=== PATIENT | male | born 1950 | race Caucasian/White ===

== ENCOUNTER 2017-10-14 12:44 | Outpatient (CLI) | payer MEDICARE, OTHER ==
--- NOTE | 2017-10-14 15:37 | XRAY Report ---
Reason: SPRAIN OF LIGAMENTS OF CER Procedure Date: 10/14/2017 Accession Number: [id number] / [id number] Procedure: XR - Cervical Spine Complete CPT Code: FULL RESULT: EXAM: CERVICAL SPINE RADIOGRAPHY EXAM DATE: 10/14/2017 01:24 PM. CLINICAL HISTORY: SPRAIN OF LIGAMENTS OF CERVICAL SPINE, NECK PAIN COMPARISONS: None. TECHNIQUE: 5 views. FINDINGS: Alignment: No spondylolisthesis or scoliosis. Bones: The cervical vertebral bodies and posterior elements are well-seen from the skull base through C7-T1. No fractures or bone lesions. Disks: Moderately advanced C5-C6 disk space narrowing. Remaining disk spaces well-maintained. Facets: Scattered degenerative disease. Neural Foramina: The neural foramina are not well seen. Soft Tissues: No prevertebral soft tissue swelling. IMPRESSION: Degenerative change cervical spine most marked C5-C6 without superimposed acute findings. RADIA
== END 2017-10-14 12:45 | disposition home or self-care (01) ==
LOC: DI 12:44
PROVIDERS: ATTEND Physical Medicine & Rehabilitation
DX: M50.322 Other cervical disc degeneration at C5-C6 level (principal); M47.892 Other spondylosis, cervical region
CPT/HCPCS: 72050

== ENCOUNTER 2020-06-25 09:03 | Outpatient (CLI) | payer MEDICARE, OTHER ==
[2020-06-25 09:27] LABS: BILIRUBIN,URINE NEGATIVE (NEGATIVE); GLUCOSE, URINE (UA) NEGATIVE (NEGATIVE); KETONES,URINE (UA) NEGATIVE (NEGATIVE); LEUKOCYTE ESTERASE, URINE LARGE (NEGATIVE); NITRITE,URINE NEGATIVE (NEGATIVE); OCCULT BLOOD,URINE MODERATE (NEGATIVE); PROTEIN,URINE 30 mg/dL (NEGATIVE); UROBILINOGEN,URINE 0.2 (NORMAL) E.U./dL (NORMAL)
[2020-06-25 09:33] LABS: BACTERIA,URINE Few /HPF (None Seen); CLARITY,URINE CLOUDY (CLEAR); SQUAMOUS EPITHELIAL CELL,UR FEW Squamous (<= Few); WBC,URINE >25 /HPF (0-3)
== END 2020-06-25 09:04 | disposition home or self-care (01) ==
LOC: LAB 09:03
PROVIDERS: ATTEND Student in an Organized Health Care Education/Training Program
DX: N39.0 Urinary tract infection, site not specified (principal)
CPT/HCPCS: 81001; 81003; 81599

== ENCOUNTER 2020-08-02 12:57 | Emergency (ER) | payer MEDICARE, OTHER ==
[2020-08-02 13:08] VITALS: BP 176/87
[2020-08-02 13:35] LABS: BASOPHILS # (AUTO) 0.1 10^3/uL (0.0-0.1); BASOPHILS % (AUTO) 1.2 %; EOSINOPHILS # (AUTO) 0.4 10^3/uL (0.0-0.7); EOSINOPHILS % (AUTO) 5.5 %; HCT - HEMATOCRIT 39.3 % (42.0-52.0); HGB - HEMOGLOBIN 12.5 g/dL (14.0-18.0); LYMPHOCYTES # (AUTO) 1.5 10^3/uL (1.5-3.5); LYMPHOCYTES % (AUTO) 22.2 %; MEAN CORPUSCULAR HEMOGLOBIN 30.9 pg (27.0-31.0); MEAN CORPUSCULAR HGB CONC 31.8 g/dL (32.0-36.0); MEAN PLATELET VOLUME 11.2 fL (7.4-11.4); MONOCYTES # (AUTO) 0.8 10^3/uL (0.0-1.0); MONOCYTES % (AUTO) 12.1 %; NEUTROPHILS % (AUTO) 58.6 %; PLT - PLATELET COUNT 160 10^3/uL (130-450); RED BLOOD COUNT 4.05 10^6/uL (4.70-6.10); RED CELL DISTRIBUTION WIDTH 12.8 % (12.0-15.0); WHITE BLOOD COUNT 6.8 x10^3/uL (4.8-10.8)
[2020-08-02 13:49] LABS: ALBUMIN 4.2 g/dL (3.2-5.5); ALBUMIN/GLOBULIN RATIO 1.2 (1.0-2.2); BILIRUBIN,TOTAL 0.5 mg/dL (0.2-1.0); CALCIUM 9.5 mg/dL (8.5-10.3); CREATININE 2.4 mg/dL (0.6-1.2); POTASSIUM 4.7 mmol/L (3.5-5.0); TOTAL PROTEIN 7.8 g/dL (6.7-8.2)
--- NOTE | 2020-08-02 13:54 | ED Physician Documentation ---
History of Present Illness - Stated complaint Stated Complaint: POTASSIUM CONCERN - Chief complaint Chief Complaint: General - History obtained from History obtained from: Patient - History of Present Illness Timing: Today Pain level max: 0 Pain level now: 0 - Additonal information Additional information: Patient sent in by his bulk mail clerk today for elevated potassium on outpatient lab draw. 5.9. Patient is asymptomatic. Patient has chronic renal failure, baseline creatinine is between 2.4 and 2.7. Review of Systems Ten Systems: 10 systems reviewed and negative Constitutional: denies: Fever, Chills Throat: denies: Sore throat Cardiac: denies: Chest pain / pressure Respiratory: denies: Dyspnea, Cough Skin: denies: Rash Musculoskeletal: denies: Neck pain Neurologic: denies: Headache PD PAST MEDICAL HISTORY - Past Medical History Past Medical History: Yes : Renal insuffiency - Allergies Allergies/Adverse Reactions: Allergies Allergy/AdvReac Type Severity Reaction Status Date / Time No Known Drug Allergies Allergy Verified 08/02/20 13:04 - Living Situation Living Situation: reports: With family Living Arrangement: reports: At home PD ED PE NORMAL - Vitals Vital signs reviewed: Yes - General General: Alert and oriented X 3, No acute distress - HEENT HEENT: Moist mucous membranes - Neck Neck: Supple, no meningeal sign - Cardiac Cardiac: RRR - Respiratory Respiratory: No respiratory distress, Clear bilaterally - Derm Derm: Warm and dry - Extremities Extremities: No edema - Neuro Neuro: Alert and oriented X 3 Results - Vitals Vitals: Vital Signs - 24 hr 08/02/20 13:04 Temperature 36.5 C Heart Rate 57 L Respiratory 16 Rate Blood Pressure 176/87 H O2 Saturation 98 Oxygen O2 Source Room air - EKG (time done) 1317 Rate: Rate (enter#) (57) Rhythm: NSR [place]: Normal Intervals: Normal PA QRS: Normal Ischemia: Normal ST segments - Labs Labs: Laboratory Tests 08/02/20 08/02/20 13:30 13:30 WBC 6.8 RBC 4.05 L Hgb 12.5 L Hct 39.3 L MCV 97.0 H MCH 30.9 MCHC 31.8 L RDW 12.8 Plt Count 160 MPV 11.2 Neut # (Auto) 4.0 Lymph # (Auto) 1.5 [place] # (Auto) 0.8 Eos # (Auto) 0.4 Baso # (Auto) 0.1 Absolute Nucleated RBC 0.00 Nucleated RBC % 0.0 Sodium 138 Potassium 4.7 Chloride 104 Carbon Dioxide 26 Anion Gap 8.0 BUN 22 H Creatinine 2.4 H Estimated GFR (MDRD) 27 L Glucose 90 Calcium 9.5 Total Bilirubin 0.5 AST 20 ALT 21 Alkaline Phosphatase 91 Total Protein 7.8 Albumin 4.2 Globulin 3.6 Albumin/Globulin Ratio 1.2 PD MEDICAL DECISION MAKING - ED course Complexity details: reviewed results, re-evaluated patient, considered differential, d/w patient, d/w family ED course: Normal repeat potassium. Normal EKG. we will have him follow-up with his doctor as usually scheduled. Patient counseled regarding signs and symptoms for which I believe and urgent re-evaluation would be necessary. Patient with good understanding of and agreement to plan and is comfortable going home at this time This document was made in part using voice recognition software. While efforts are made to proofread this document, sound alike and grammatical errors may oc cur. Departure - Departure Disposition: 01 Home, Self Care Clinical Impression: Encounter for medical screening examination Condition: Good Instructions: ED Screening Exam Medical Nonurgent Follow-Up: ERIN APONTE DO [Primary Care Provider] - As Needed Comments: Repeat creatinine was 2.4 today. Your repeat potassium is 4.7. This is in the normal range. Return if you worsen.
== END 2020-08-02 13:56 | disposition home or self-care (01) ==
LOC: ED 12:57
DX: Z13.89 Encounter for screening for other disorder (principal); N18.9 Chronic kidney disease, unspecified
CPT/HCPCS: 36415; 80053; 85025; 93005; 99282; 99283

== ENCOUNTER 2022-12-25 16:55 | Emergency (ER) | payer MEDICARE, OTHER ==
--- NOTE | 2022-12-25 17:41 | ED Physician Documentation ---
History of Present Illness - Stated complaint Stated Complaint: - Chief complaint Chief Complaint: General - History obtained from History obtained from: Patient - Additonal information Additional information: 72-year-old male who has a history of CKD is well as BPH per patient report presents at the request of his directory carrier after a CT scan done yesterday showed severe bilateral hydronephrosis. There were no stones or other occlusions. The patient states he was advised by directory carrier to come to the ER for self catheter supplies or an indwelling urinary catheter. Patient states that he has not had any change in his urinary pattern, and denies any difficulty voiding or feeling like he has voided incompletely though patient reports history ofUrinary retention and elevated postvoid residuals in the past thought secondary to decreased bladder innervation from prior surgeries. He is followed by nephrology as well as urology. He denies any fever or chills, no flank pain, no dysuria urgency or frequency. No hematuria. He had lab work done yesterday which showed actually an improved GFR into the 40s states his prior was down as low as 19 in the past. He has required an indwelling urinary catheter in the past. PD PAST MEDICAL HISTORY - Past Medical History Past Medical History: Yes Cardiovascular: Hypertension : Renal insuffiency - Allergies Allergies/Adverse Reactions: Allergies Allergy/AdvReac Type Severity Reaction Status Date / Time No Known Drug Allergies Allergy Verified 08/02/20 13:04 - Social History Does the pt smoke?: No Smoking Status: Never smoker PD ED PE NORMAL - Vitals Vital signs reviewed: Yes - General General: Alert and oriented X 3, No acute distress, Well developed/nourished - HEENT HEENT: Atraumatic, Moist mucous membranes - Cardiac Cardiac: RRR, No murmur - Respiratory Respiratory: No respiratory distress, Clear bilaterally - Abdomen Abdomen: Normal bowel sounds, Soft, Non tender, Non distended - Back Back: No CVA TTP Results - Vitals Vitals: Vital Signs - 24 hr 12/25/22 16:58 Temperature 36.5 C Heart Rate 63 Respiratory 16 Rate Blood Pressure 138/80 H O2 Saturation 97 Oxygen O2 Source Room air PD Medical Decision Making - ED course Complexity details: reviewed results, considered differential ED course: 72-year-old male with past medical history as above who presented at the request of his directory carrier for an indwelling urinary catheter or straight cath supplies. This is due to a recent CT showing severe bilateral hydronephrosis though no apparent occlusion on CT scan and patient had stable renal function as of yesterday. He is asymptomatic today and has no other acute concerns. He would prefer to have self catheter instructions and supplies however we are unable to get supplies for the weekend and do not have home self catheter kits here in the ER therefore I have recommended that we place an indwelling urinary catheter and the patient can follow-up next week hopefully either with the urologist or directory carrier and waste/materials exchange specialist to self-catheterization if he is able to get supplies ordered. Patient is okay with this plan. Given no other symptoms, no additional tests are indicated today. The patient had an indwelling urinary catheter placed and was discharged home in stable condition. Departure - Departure Disposition: 01 Home, Self Care Clinical Impression: Acute urinary retention, Bilateral hydronephrosis Condition: Good Instructions: ED Catheter Care [place] Comments: Please follow up with your urologist and directory carrier next week. Unfortunately we do not have self-catheter supplies but it is possible your urologist or directory carrier may be able to switch you from indwelling catheter to self-catheter next week if they can order supplies. Please return if you develop a fever, flank pain, or any problems with your catheter. Forms: PCP List
[2022-12-25 18:15] VITALS: BP 139/87; O2SAT 100
== END 2022-12-25 18:08 | disposition home or self-care (01) ==
LOC: ED 16:55
DX: R33.9 Retention of urine, unspecified (principal); N13.30 Unspecified hydronephrosis
CPT/HCPCS: 51702; 99283

== ENCOUNTER 2023-01-10 11:41 | Emergency (ER) | payer MEDICARE, OTHER ==
--- NOTE | 2023-01-10 12:16 | ED Physician Documentation ---
History of Present Illness - Stated complaint Stated Complaint: FEVER, - Chief complaint Chief Complaint: Abd Pain - History obtained from History obtained from: Patient, Family - History of Present Illness Timing: How many days ago (2) Pain level max: 0 Pain level now: 0 - Additonal information Additional information: Patient is a 72-year-old male who presents to the emergency department stating that he has a history of chronic kidney disease and had a Braxton catheter. He states that the Braxton catheter was removed and he has been self catheterizing for the past 3 days. This morning had a fever of 102. Took Tylenol. Urine was cloudy. Came in for evaluation. Patient states he does not take any home medications, but it appears that he is on amlodipine and testosterone gabapentin atorvastatin and Flomax as well as Valium, Wellbutrin and Lamictal. Review of Systems Constitutional: reports: Fever, Chills, Myalgias Nose: denies: Rhinorrhea / runny nose, Congestion Throat: denies: Sore throat Cardiac: denies: Chest pain / pressure Respiratory: denies: Dyspnea, Cough, Wheezing GI: denies: Abdominal Pain, Nausea, Vomiting, Diarrhea Skin: denies: Rash Musculoskeletal: denies: Neck pain, Back pain Neurologic: denies: Headache PD PAST MEDICAL HISTORY - Past Medical History Past Medical History: Yes Cardiovascular: Hypertension GI: Other : Retention, Incontinence, Renal insuffiency Other Past Medical History: colon cancer - Past Surgical History Past Surgical History: Yes - Present Medications Home Medications: Ambulatory Orders Medication Instructions Recorded Confirmed Cefpodoxime Proxetil [Vantin] 100 mg PO Q12H #20 tablet 01/10/23 - Allergies Allergies/Adverse Reactions: Allergies Allergy/AdvReac Type Severity Reaction Status Date / Time No Known Drug Allergies Allergy Verified 01/10/23 11:58 - Social History Does the pt smoke?: No Smoking Status: Never smoker Does the pt drink ETOH?: No Does the pt have substance abuse?: No - Immunizations Immunizations are current?: No PD ED PE NORMAL - Vitals Vital signs reviewed: Yes - General General: Alert and oriented X 3, No acute distress - HEENT HEENT: PERRL, Moist mucous membranes - Neck Neck: Supple, no meningeal sign - Cardiac Cardiac: RRR, Strong equal pulses - Respiratory Respiratory: No respiratory distress, Clear bilaterally - Abdomen Abdomen: Soft, Non tender, Non distended - Back Back: No CVA TTP, No spinal TTP - Derm Derm: Warm and dry - Extremities Extremities: No edema - Neuro Neuro: Alert and oriented X 3 - Psych Psych: Normal mood, Normal affect Results - Vitals Vitals: Vital Signs - 24 hr 01/10/23 01/10/23 11:50 11:57 Temperature 36.7 C 36.7 C Heart Rate 84 84 Respiratory 15 15 Rate Blood Pressure 137/59 H 137/59 H O2 Saturation 95 95 Oxygen O2 Source Room air - Labs Labs: Laboratory Tests 01/10/23 01/10/23 01/10/23 12:05 12:18 12:18 WBC 21.2 H RBC 4.56 L Hgb 14.3 Hct 42.2 MCV 92.5 MCH 31.4 H MCHC 33.9 RDW 12.7 Plt Count 195 MPV 10.2 Neut # (Auto) Not Reportable Lymph # (Auto) Not Reportable [place] # (Auto) Not Reportable Eos # (Auto) Not Reportable Baso # (Auto) Not Reportable Absolute Nucleated RBC Not Reportable Total Counted 100 Band Neuts % (Manual) 14 H Reactive Lymphs % (Man) 1 Abnorm Lymph % (Manual) 0 Nucleated RBC % Not Reportable Neutrophils # (Manual) 19.3 H Lymphocytes # (Manual) 0.4 L Monocytes # (Manual) 1.5 H Eosinophils # (Manual) 0.0 Basophils # (Manual) 0.0 Differential Comment MANUAL DIFFERENTIAL Manual Slide Review Indicated Platelet Estimate NORMAL (130-450,000) RBC Morph Micro Appear 1+ ANISOCYTOSIS Sodium 128 L Potassium 4.0 Chloride 96 L Carbon Dioxide 24 Anion Gap 8.0 BUN 19 Creatinine 1.7 H Estimated GFR (MDRD) 40 L Glucose 115 H Lactic Acid Calcium 9.4 Total Bilirubin 0.7 AST 18 ALT 27 Alkaline Phosphatase 69 Total Protein 6.7 Albumin 4.0 Globulin 2.7 Albumin/Globulin Ratio 1.5 Lipase 69 Urine Color LT. YELLOW Urine Clarity SL. CLOUDY Urine pH 6.5 Ur Specific [place] <=1.005 Urine Protein 30 H Urine Glucose (UA) NEGATIVE Urine Ketones NEGATIVE Urine Occult Blood MODERATE H Urine Nitrite POSITIVE H Urine Bilirubin NEGATIVE Urine Urobilinogen 0.2 (NORMAL) Ur Leukocyte Esterase LARGE H Urine RBC 0-5 Urine WBC >25 H Urine WBC Clumps PRESENT Ur Squamous Epith Cells NONE SEEN Urine Bacteria Few Ur Microscopic Review INDICATED Urine Culture Comments INDICATED 01/10/23 12:18 WBC RBC Hgb Hct MCV MCH MCHC RDW Plt Count MPV Neut # (Auto) Lymph # (Auto) [place] # (Auto) Eos # (Auto) Baso # (Auto) Absolute Nucleated RBC Total Counted Band Neuts % (Manual) Reactive Lymphs % (Man) Abnorm Lymph % (Manual) Nucleated RBC % Neutrophils # (Manual) Lymphocytes # (Manual) Monocytes # (Manual) Eosinophils # (Manual) Basophils # (Manual) Differential Comment Manual Slide Review Platelet Estimate RBC Morph Micro Appear Sodium Potassium Chloride Carbon Dioxide Anion Gap BUN Creatinine Estimated GFR (MDRD) Glucose Lactic Acid 1.2 Calcium Total Bilirubin AST ALT Alkaline Phosphatase Total Protein Albumin Globulin Albumin/Globulin Ratio Lipase Urine Color Urine Clarity Urine pH Ur Specific [place] Urine Protein Urine Glucose (UA) Urine Ketones Urine Occult Blood Urine Nitrite Urine Bilirubin Urine Urobilinogen Ur Leukocyte Esterase Urine RBC Urine WBC Urine WBC Clumps Ur Squamous Epith Cells Urine Bacteria Ur Microscopic Review Urine Culture Comments PD Medical Decision Making - ED course Complexity details: reviewed results, re-evaluated patient, considered differential, d/w patient, d/w family ED course: Patient is found to have a UTI and is given 2 g of Rocephin IV. Given liter of IV fluid as well for his mild hyponatremia. His lactate is normal. His vital signs do not show any significant abnormalities. Does not appear septic at this time. Patient states that he feels much better. Patient is well-appearing and nontoxic. We will trial him on antibiotics for home and have him follow-up closely with his urologist. Abdomen is soft, nontender nondistended on serial exam. No CVA tenderness. Tolerating p.o. without difficulty. Patient and family counseled regarding signs and symptoms for which I believe and urgent re- evaluation would be necessary. Patient with good understanding of and agreement to plan and is comfortable going home at this time This document was made in part using voice recognition software. While efforts are made to proofread this document, sound alike and grammatical errors may occur. Departure - Departure Disposition: Home, Self Care Clinical Impression: Hyponatremia UTI (urinary tract infection) Qualifiers: Urinary tract infection type: acute cystitis Hematuria presence: without hematuria Qualified Code(s): N30.00 - Acute cystitis without hematuria Fever Qualifiers: Fever type: unspecified Qualified Code(s): R50.9 - Fever, unspecified Chronic kidney disease Qualifiers: Chronic kidney disease stage: unspecified stage Qualified Code(s): N18.9 - Chronic kidney disease, unspecified Condition: Good Instructions: ED UTI Cystitis Male Follow-Up: ERIN APONTE DO [Primary Care Provider] - Within 1 week Prescriptions: Cefpodoxime Proxetil [Vantin] 100 mg PO Q12H #20 tablet Comments: Please take all antibiotics until gone. Your prescriptions were sent to [facility] in [place]. You were given IV antibiotics today that should last until tomorrow. Return for worsening fevers, vomiting or other new or worrisome symptoms. We will call you if an antibiotic change is needed, we will also call you if your blood cultures turn positive. Take all antibiotics until gone even if you are feeling better. Forms: PCP List
[2023-01-10 12:22] LABS: BILIRUBIN,URINE NEGATIVE (NEGATIVE); GLUCOSE, URINE (UA) NEGATIVE (NEGATIVE); KETONES,URINE (UA) NEGATIVE (NEGATIVE); LEUKOCYTE ESTERASE, URINE LARGE (NEGATIVE); NITRITE,URINE POSITIVE (NEGATIVE); OCCULT BLOOD,URINE MODERATE (NEGATIVE); PH,URINE 6.5 PH (5.0-7.5); PROTEIN,URINE 30 mg/dL (NEGATIVE); UROBILINOGEN,URINE 0.2 (NORMAL) E.U./dL (NORMAL)
[2023-01-10 12:24] LABS: CLARITY,URINE SL. CLOUDY (CLEAR)
[2023-01-10 12:28] LABS: BASOPHILS % (AUTO) 0.4 %; EOSINOPHILS % (AUTO) 0.1 %; HCT - HEMATOCRIT 42.2 % (42.0-52.0); HGB - HEMOGLOBIN 14.3 g/dL (14.0-18.0); LYMPHOCYTES % (AUTO) 4.4 %; MEAN CORPUSCULAR HEMOGLOBIN 31.4 pg (27.0-31.0); MEAN CORPUSCULAR HGB CONC 33.9 g/dL (32.0-36.0); MEAN CORPUSCULAR VOLUME 92.5 fL (80.0-94.0); MEAN PLATELET VOLUME 10.2 fL (7.4-11.4); MONOCYTES % (AUTO) 10.3 %; NEUTROPHILS % (AUTO) 84.2 %; PLT - PLATELET COUNT 195 10^3/uL (130-450); RED BLOOD COUNT 4.56 10^6/uL (4.70-6.10); RED CELL DISTRIBUTION WIDTH 12.7 % (12.0-15.0); WHITE BLOOD COUNT 21.2 x10^3/uL (4.8-10.8)
[2023-01-10 12:34] LABS: SLIDE REVIEW? Indicated
[2023-01-10 12:49] LABS: ABNORMAL LYMPHS % (MANUAL) 0 %
[2023-01-10 12:51] LABS: BAND NEUTROPHILS % (MANUAL) 14 %; LYMPHOCYTES # (MANUAL) 0.4 10^3/uL (1.5-3.5); LYMPHOCYTES % (MANUAL) 1 %; MONOCYTES # (MANUAL) 1.5 10^3/uL (0.0-1.0); NEUTROPHILS # (MANUAL) 19.3 10^3/uL (1.5-6.6); RBC MORPHOLOGY (MULTIPLE) 1+ ANISOCYTOSIS (NORMAL); REACTIVE LYMPHS % (MANUAL) 1 %
[2023-01-10 12:52] LABS: DIFFERENTIAL COMMENT MANUAL DIFFERENTIAL; PLATELET ESTIMATE, MANUAL NORMAL (130-450,000) (NORMAL)
[2023-01-10 12:55] LABS: ALBUMIN/GLOBULIN RATIO 1.5 (1.0-2.2); BILIRUBIN,TOTAL 0.7 mg/dL (0.2-1.0); CALCIUM 9.4 mg/dL (8.5-10.3); CREATININE 1.7 mg/dL (0.6-1.3); TOTAL PROTEIN 6.7 g/dL (6.4-8.9)
[2023-01-10] MEDS ORDERED: cefTRIAXone 2 GM in SODIUM CHLORIDE 0.9% MINIBAG 100 ML IV STA (12:55)
[2023-01-10 12:57] LABS: WBC,URINE >25 /HPF (0-3)
[2023-01-10 12:58] LABS: BACTERIA,URINE Few /HPF (None Seen); RBC,URINE 0-5 /HPF (0-5); SQUAMOUS EPITHELIAL CELL,UR NONE SEEN (<= Few); WBC CLUMPS,URINE PRESENT
[2023-01-10] MEDS ORDERED: SODIUM CHLORIDE 0.9% 1,000 ML IV STA (13:16)
[2023-01-10 14:03] VITALS: BP 130/60; O2SAT 96
== END 2023-01-10 14:21 | disposition home or self-care (01) ==
LOC: ED 11:41
DX: N30.00 Acute cystitis without hematuria (principal); I12.9 Hypertensive chronic kidney disease with stage 1 through stage 4 chronic kidney disease, or unspecified chronic kidney disease; N18.9 Chronic kidney disease, unspecified; E87.1 Hypo-osmolality and hyponatremia
CPT/HCPCS: 36415; 80053; 81001; 81003; 83605; 83690; 85025; 87040; 87086; 87150; 87181; 96365; 99283

== ENCOUNTER 2023-01-11 16:28 | Emergency (ER) | payer MEDICARE, OTHER ==
--- NOTE | 2023-01-11 16:45 | ED Physician Documentation ---
History of Present Illness - Stated complaint Stated Complaint: ABNORMAL LABWORK - Chief complaint Chief Complaint: General - History obtained from History obtained from: Patient, Family - History of Present Illness Timing: Today Pain level max: 0 Pain level now: 0 - Additonal information Additional information: Patient is a 72-year-old male who presents to the emergency department after having a positive blood culture from his visit yesterday. He was treated for UTI yesterday. He self catheterizes. A white count of over 20,000. Urinalysis showed infection. Urine culture is growing out Pseudomonas. He states that he feels much better than yesterday. No fevers. No chills. His blood culture was gram-positive cocci in 1 of 2 bottles. Review of Systems Constitutional: denies: Fever, Chills Ears: denies: Ear pain Nose: denies: Rhinorrhea / runny nose, Congestion Respiratory: denies: Cough GI: denies: Nausea, Vomiting, Diarrhea Skin: denies: Rash Musculoskeletal: denies: Neck pain, Back pain Neurologic: denies: Headache PD PAST MEDICAL HISTORY - Past Medical History Past Medical History: Yes Cardiovascular: Hypertension GI: Other : Retention, Incontinence, Renal insuffiency - Past Surgical History Past Surgical History: Yes - Present Medications Home Medications: Ambulatory Orders Medication Instructions Recorded Confirmed Cefpodoxime Proxetil [Vantin] 100 mg PO Q12H #20 tablet 01/10/23 Ciprofloxacin HCl [Cipro] 500 mg PO BID #20 tablet 01/11/23 - Allergies Allergies/Adverse Reactions: Allergies Allergy/AdvReac Type Severity Reaction Status Date / Time No Known Drug Allergies Allergy Verified 01/11/23 16:41 - Social History Does the pt smoke?: No Smoking Status: Never smoker Does the pt drink ETOH?: No Does the pt have substance abuse?: No - Immunizations Immunizations are current?: No PD ED PE NORMAL - Vitals Vital signs reviewed: Yes - General General: Alert and oriented X 3, No acute distress - HEENT HEENT: PERRL, Moist mucous membranes - Neck Neck: Supple, no meningeal sign - Cardiac Cardiac: RRR, Strong equal pulses - Respiratory Respiratory: No respiratory distress, Clear bilaterally - Abdomen Abdomen: Soft, Non tender, Non distended - Back Back: No CVA TTP, No spinal TTP - Derm Derm: Warm and dry - Extremities Extremities: No edema, No calf tenderness / cord - Neuro Neuro: Alert and oriented X 3 - Psych Psych: Normal mood, Normal affect Results - Vitals Vitals: Vital Signs - 24 hr 01/11/23 01/11/23 16:41 17:33 Temperature 36.5 C 36.7 C Heart Rate 73 79 Respiratory 16 16 Rate Blood Pressure 110/82 H 121/74 O2 Saturation 96 98 Oxygen O2 Source Room air - Labs Labs: Laboratory Tests 01/11/23 01/11/23 01/11/23 17:05 17:05 17:05 WBC 14.9 H RBC 4.44 L Hgb 14.0 Hct 42.6 MCV 95.9 H MCH 31.5 H MCHC 32.9 RDW 12.8 Plt Count 189 MPV 10.0 Neut # (Auto) 11.5 H Lymph # (Auto) 1.1 L [place] # (Auto) 1.9 H Eos # (Auto) 0.3 Baso # (Auto) 0.1 Absolute Nucleated RBC 0.00 Band Neuts % (Manual) Not Reportable Abnorm Lymph % (Manual) Not Reportable Nucleated RBC % 0.0 Neutrophils # (Manual) Not Reportable Lymphocytes # (Manual) Not Reportable Monocytes # (Manual) Not Reportable Eosinophils # (Manual) Not Reportable Basophils # (Manual) Not Reportable Differential Comment MANUAL=AUTO DIFF Manual Slide Review Indicated Platelet Estimate NORMAL (130-450,000) Platelet Morphology NORMAL APPEARANCE RBC Morph Micro Appear NORMAL APPEARANCE Sodium 130 L Potassium 3.8 Chloride 100 L Carbon Dioxide 23 Anion Gap 7.0 BUN 15 Creatinine 1.5 H Estimated GFR (MDRD) 46 L Glucose 108 H Lactic Acid 0.9 Calcium 9.4 Total Bilirubin 0.5 AST 20 ALT 24 Alkaline Phosphatase 71 Total Protein 6.9 Albumin 4.0 Globulin 2.9 Albumin/Globulin Ratio 1.4 Lipase 58 PD Medical Decision Making - ED course Complexity details: reviewed results, re-evaluated patient, considered differential, d/w patient, d/w family ED course: Blood culture PCR appears to be coag negative staph. Patient is feeling much better today. No fevers. White blood cell count decreased to 14,000. As his urine culture is growing Pseudomonas, we will change him to ciprofloxacin awaiting final sensitivities. Patient has no further pain, fevers, chills. Ambulating well today. Color improved. Patient and family counseled regarding signs and symptoms for which I believe and urgent re-evaluation would be necessary. Patient with good understanding of and agreement to plan and is co mfortable going home at this time This document was made in part using voice recognition software. While efforts are made to proofread this document, sound alike and grammatical errors may occur. Departure - Departure Disposition: Home, Self Care Clinical Impression: UTI (urinary tract infection) Qualifiers: Urinary tract infection type: acute cystitis Hematuria presence: without hematuria Qualified Code(s): N30.00 - Acute cystitis without hematuria Condition: Good Instructions: ED UTI Cystitis Male Follow-Up: your,doctor in 1 week [Other] Prescriptions: Ciprofloxacin HCl [Cipro] 500 mg PO BID #20 tablet Comments: Your prescription was sent to [facility] in [place]. You can stop the cefpo doxime and start the ciprofloxacin. We will call you if another antibiotic change is needed. Your blood culture appears to be a contaminant tonight. Please return for fevers, chills or worsening symptoms. Forms: PCP List Discharge Date/Time: 01/11/23 17:34
[2023-01-11 17:12] LABS: BASOPHILS # (AUTO) 0.1 10^3/uL (0.0-0.1); BASOPHILS % (AUTO) 0.5 %; EOSINOPHILS # (AUTO) 0.3 10^3/uL (0.0-0.7); HCT - HEMATOCRIT 42.6 % (42.0-52.0); LYMPHOCYTES # (AUTO) 1.1 10^3/uL (1.5-3.5); LYMPHOCYTES % (AUTO) 7.5 %; MEAN CORPUSCULAR HEMOGLOBIN 31.5 pg (27.0-31.0); MEAN CORPUSCULAR HGB CONC 32.9 g/dL (32.0-36.0); MEAN CORPUSCULAR VOLUME 95.9 fL (80.0-94.0); MONOCYTES # (AUTO) 1.9 10^3/uL (0.0-1.0); MONOCYTES % (AUTO) 12.5 %; NEUTROPHILS # (AUTO) 11.5 10^3/uL (1.5-6.6); NEUTROPHILS % (AUTO) 77.1 %; PLT - PLATELET COUNT 189 10^3/uL (130-450); RED BLOOD COUNT 4.44 10^6/uL (4.70-6.10); RED CELL DISTRIBUTION WIDTH 12.8 % (12.0-15.0); WHITE BLOOD COUNT 14.9 x10^3/uL (4.8-10.8)
[2023-01-11 17:13] LABS: SLIDE REVIEW? Indicated
[2023-01-11 17:35] VITALS: BP 121/74; O2SAT 98
[2023-01-11 17:35] LABS: ALBUMIN/GLOBULIN RATIO 1.4 (1.0-2.2); BILIRUBIN,TOTAL 0.5 mg/dL (0.2-1.0); CALCIUM 9.4 mg/dL (8.5-10.3); CREATININE 1.5 mg/dL (0.6-1.3); POTASSIUM 3.8 mmol/L (3.5-4.5); TOTAL PROTEIN 6.9 g/dL (6.4-8.9)
[2023-01-11 17:36] LABS: PLATELET ESTIMATE, MANUAL NORMAL (130-450,000) (NORMAL); PLATELET MORPHOLOGY NORMAL APPEARANCE (NORMAL); RBC MORPHOLOGY (MULTIPLE) NORMAL APPEARANCE (NORMAL)
[2023-01-11 17:38] LABS: DIFFERENTIAL COMMENT MANUAL=AUTO DIFF
== END 2023-01-11 17:34 | disposition home or self-care (01) ==
LOC: ED 16:28
DX: N30.00 Acute cystitis without hematuria (principal); I10 Essential (primary) hypertension
CPT/HCPCS: 36415; 80053; 83605; 83690; 85025; 87040; 99283

== ENCOUNTER 2023-06-26 18:05 | Outpatient (CLI) | payer MEDICARE, OTHER | END 2023-06-26 23:59 | disposition EMS.NT | LOC: EMS 18:05 | DX: R55 Syncope and collapse (principal) ==